=== PATIENT | female | born 1975 | race Caucasian/White ===

== ENCOUNTER 2017-10-11 17:59 | Emergency (ER) | payer MEDICAID, OTHER ==
[~2017-10-11 17:59] MED LIST: DOXY100T PO; TYLE3 PO; Z.0.NO CURRENT MEDS
[2017-10-11 18:17] VITALS: BP 150/82; PULSE 98; RESP 16; TEMP 98.1; O2SAT 100
[2017-10-11] MEDS ORDERED: LIDOCAINE HCL 1% PF 30 ML VIAL ONE (18:23)
--- NOTE | 2017-10-11 18:23 | PD ---
HPI Chief Complaint: Laceration/Skin Injury Time Seen by Provider: 18:14 Travel History International Travel<30 days: No Contact w/Intl Traveler<30days: No Traveled to known affect area: No History of Present Illness HPI 42-year-old female presents to the emergency department for evaluation of laceration to her right volar hand that occurred just prior to arrival. [place], causing a laceration to her right hand. She denies any other injury. No head injury or LOC. No neck pain or back pain. No chest pain or abdominal pain. She has no chronic medical problems and takes no prescribed medication. She denies any chance of . Exacerbating factor is movement of the right hand. No alleviating factors. Mild severity PFSH Past Medical History Medical History: Denies Significant Hx Tetanus Vaccination: > 5 Years Influenza Vaccination: No ?: Not Social History Alcohol Use: Yes (3-4 DRINKS DAILY) Tobacco Use: Yes (2 PPD) Substance Use: No Allergies-Medications (Allergen,Severity, Reaction): Coded Allergies: No Known Allergies (Verified Adverse Reaction, Unknown, 10/11/17) Reported Meds & Prescriptions Reported Meds & Active Scripts Active Ibuprofen 800 Mg Tab 800 Mg PO TID PRN Doxycycline Hyclate 100 Mg Cap 100 Mg PO BID Levaquin (Levofloxacin) 750 Mg Tablet 750 Mg PO DAILY 7 Days Keflex (Cephalexin) 500 Mg Cap 500 Mg PO Q6H 7 Days Review of Systems Except as stated in HPI: all other systems reviewed are Neg Physical Exam Narrative GENERAL: Well-nourished, well-developed female patient, ambulatory. Afebrile SKIN: Focused skin assessment warm/dry. Patient has a 5 cm laceration to the right volar hand. HEAD: Normocephalic. Atraumatic EYES: No scleral icterus. No injection or drainage. NECK: Supple, trachea midline. No JVD or lymphadenopathy. CARDIOVASCULAR: Regular rate and rhythm without murmurs, gallops, or rubs. RESPIRATORY: Breath sounds equal bilaterally. No accessory muscle use. Lung sounds are clear to auscultation. MUSCULOSKELETAL: No cyanosis, or edema. Patient has full flexion-extension of all digits of the right hand. Strength is 5/5 in all digits of the right hand. BACK: Nontender without obvious deformity. No CVA tenderness. Data Data Last Documented VS Vital Signs Date Time Temp Pulse Resp B/P (MAP) Pulse Ox O2 Delivery O2 Flow Rate FiO2 10/11/17 18:20 (104) 10/11/17 18:17 98.1 98 16 100 Room Air Orders Orders Hand, Complete ([id number]) (10/11/17 ) Tetanus/Diphtheria Tox Adult (Tetanus/Di (10/11/17 18:30) Lidocaine 1% Inj (Xylocaine 1% Inj) (10/11/17 18:30) Lidocaine Pf 1% Inj (Xylocaine-Mpf 1% In (10/11/17 18:23) Ibuprofen (Motrin) (10/11/17 18:45) Ed Discharge Order (10/11/17 19:24) [facility] Medical Decision Making Medical Screen Exam Complete: Yes Emergency Medical Condition: Yes Medical Record Reviewed: Yes Interpretation(s) x-ray of the right hand - CONCLUSION: No evidence of recent bony injury. No radiopaque foreign bodies. Differential Diagnosis Laceration versus foreign body versus tendon laceration Narrative Course 42-year-old female presents to the emergency department for evaluation of a laceration to her right hand. X-ray of the right hand is ordered and pending. Tetanus immunization is updated. Patient gives verbal consent for laceration repair. X-ray of the right hand shows no evidence of recent bony injury. No radiopaque foreign bodies. Laceration was repaired. She is given proper wound care instructions. Patient will be discharged with a prescription for Keflex, Levaquin, doxycycline as this was a salt water exposure wound. Patient is instructed to return medially for any evidence of infection. She is return in 7 days for suture removal. She verbalizes agreement. The patient was discharged in stable condition with instructions, including return instructions and follow up instructions. Procedures Procedure Narrative LACERATION LOCATION: Right volar hand LENGTH: 5 cm NUMBER OF STITCHES/DAVE: 8 simple interrupted suture REPAIR: The area of the laceration was prepped with Betadine and sterilely draped. The laceration was infiltrated with 1% lidocaine. The wound was copiously irrigated and explored without evidence of foreign body, tendon injury or neurovascular injury. The wound was closed using 4-0 Prolene. This was a single layer repair. A sterile dressing was applied. The patient was advised to keep the dressing clean and dry. Patient tolerated the procedure well. Diagnosis Primary Impression: Laceration of right hand Qualified Codes: S61.411A - Laceration without foreign body of right hand, initial encounter Referrals: Primary Care Physician call for appointment Patient Instructions: Care For Your Stitches (ED), General Instructions, Laceration (ED) Additional Instructions: Take antibiotics as directed until gone. Take ibuprofen as directed as needed with food for pain. Clean twice daily with soap and water apply [id number] antibiotic ointment. Keep clean and dry No swimming or hot tubs until healed Suture removal in 7-10 days. You may follow with your primary care physician return to the emergency department for this. Return to the emergency department for any acute worsening of symptoms Med/Other Pt SpecificInfo: Prescription(s) given Scripts Ibuprofen (Ibuprofen) 800 Mg Tab 800 MG PO TID Y for PAIN SCALE 1 TO 10, #21 TAB 0 Refills Prov: Conchis Herrera 10/11/17 Doxycycline Hyclate (Doxycycline Hyclate) 100 Mg Cap 100 MG PO BID for Infection, #20 CAP 0 Refills Prov: Conchis Herrera 10/11/17 Levofloxacin (Levaquin) 750 Mg Tablet 750 MG PO DAILY for Infection for 7 Days, #7 TAB 0 Refills Prov: Conchis Herrera 10/11/17 Cephalexin (Keflex) 500 Mg Cap 500 MG PO Q6H for Infection for 7 Days, #28 CAP 0 Refills Prov: Conchis Herrera 10/11/17 Disposition: 01 DISCHARGE HOME Condition: Stable Conchis Herrera October 11, 2017 18:23
[2017-10-11] MEDS ORDERED: TETANUS/DIPHTHERIA TOXOID ADULT 0.5 ML VIAL IM ONE (18:30)
[2017-10-11] MEDS ORDERED: LIDOCAINE HCL 1% 30 ML VIAL INFIL ONE (18:30)
[2017-10-11] MEDS ORDERED: IBUPROFEN 800 MG TAB PO ONE (18:45)
--- NOTE | 2017-10-11 18:55 | RADRPT ---
EXAM DATE: 10/11/2017 6:45 PM EDT AGE/SEX: 42 years / Female INDICATIONS: Evaluate for foreign body. Patient lacerated palmar surface of hand anterior to distal metacarpals on oyster shell today CLINICAL DATA: This is the patient's initial encounter. Patient reports that signs and symptoms have been present for 1 day and indicates a pain score of 10/10. MEDICAL/SURGICAL HISTORY: None. None. COMPARISON: No prior [facility] exams available for comparison. FINDINGS: Bony structures are intact and in normal alignment. 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 Osseous density is normal. Soft tissues are unremarkable. Small calcification near the ulnar styloid in the triangle fibrocartilage. No radiopaque foreign bodies seen. CONCLUSION: No evidence of recent bony injury. No radiopaque foreign bodies. Electronically signed by: Johnathan Morris MD 10/11/2017 6:53 PM EDT
[2017-10-11] MEDS ORDERED: CEPH-460 PO (19:22)
[2017-10-11] MEDS ORDERED: LEVA750T9 PO (19:22)
[2017-10-11] MEDS ORDERED: DOXY100C PO (19:22)
[2017-10-11] MEDS ORDERED: IBUP1TAB7 PO (19:24)
== END 2017-10-11 19:37 | disposition home or self-care (01) ==
LOC: PHEFT 17:59
DX: S61.411A Laceration without foreign body of right hand, initial encounter (principal); W19.XXXA Unspecified fall, initial encounter; Y92.828 Other wilderness area as the place of occurrence of the external cause; F17.200 Nicotine dependence, unspecified, uncomplicated; Z23 Encounter for immunization
CPT/HCPCS: 12002; 73130; 90471; 90714